=== PATIENT | female | born 1985 | race Caucasian/White ===

== ENCOUNTER 2016-11-25 18:20 | Emergency (ER) | payer SELFPAY ==
--- NOTE | 2016-11-25 19:08 | EDPHY ---
H & P Time Seen by Provider: 11/25/16 19:06 HPI/ROS: CHIEF COMPLAINT: Fever, myalgias, left breast pain, back pain HISTORY OF PRESENT ILLNESS: The patient presents to the ED after she has developed fever, myalgias, left breast pain and back pain over the past several days. Patient is currently breast-feeding. She has a remote history of pyelonephritis treated approximately 3 weeks ago by her report. She denies recent antibiotic use. In the ED she complains of subjective fever, myalgias, left breast pain and pain in her back. She denies dysuria. She has generalized abdominal pain. She also reports a chronic cough. REVIEW OF SYSTEMS: A comprehensive 10 point review of systems is otherwise negative aside from elements mentioned in the history of present illness. Source: Patient Exam Limitations: No limitations - Personal History Tetanus Vaccine Date: 2006 - Medical/Surgical History Hx Asthma: No Hx Chronic Respiratory Disease: No Hx Diabetes: No Hx Cardiac Disease: No Hx Renal Disease: No Hx Cirrhosis: No Hx Alcoholism: No Hx HIV/AIDS: No Hx Splenectomy or Spleen Trauma: No Other PMH: wisdom teeth removal - Social History Smoking Status: Former smoker - Physical Exam Exam: General Appearance: Alert, no distress Eyes: Pupils equal and round no pallor or injection ENT, Mouth: Mucous membranes moist Respiratory: There are no retractions, lungs are clear to auscultation Cardiovascular: Regular rate and rhythm Gastrointestinal: Abdomen is soft and nontender, no masses, bowel sounds normal Neurological: A&O, normal motor function, normal sensory exam, normal cranial nerves Skin: Warm and dry, no rashes Musculoskeletal: Neck is supple nontender Extremities: symmetrical, full range of motion Constitutional: Initial Vital Signs Temperature (C) 39.3 C H 11/25/16 19:06 Heart Rate 112 H 11/25/16 19:06 Respiratory Rate 18 11/25/16 19:06 Blood Pressure 97/64 L 11/25/16 19:06 O2 Sat (%) 93 11/25/16 19:06 O2 Delivery Mode Room Air Allergies/Adverse Reactions: avocado Allergy (Verified 10/08/16 21:17) latex [Latex] Allergy (Verified 10/08/16 21:17) Hives nitrile Allergy (Intermediate, Uncoded 10/08/16 21:17) Hives NARCOTICS Allergy (Uncoded 10/08/16 21:17) Home Medications: Medication Instructions Recorded Cephalexin [Keflex] 500 mg PO Q6H #28 cap 10/08/16 Ondansetron HCl [Zofran] 4 mg PO Q4-6PRN PRN #10 tablet 10/08/16 Phenazopyridine HCl [Pyridium] 200 mg PO TID #15 tab 10/08/16 Medical Decision Making - Diagnostics Imaging: Chest x-ray AP lateral: Images reviewed by myself, changes consistent with possible bronchitis or noted, no focal pneumonia. Left breast ultrasound: Images reviewed by myself and discussed with Dr. Gonzales from Radiology. Negative for abscess. ED Course/Re-evaluation: The patient presents to the ED with fever, flu-like illness, myalgias, left breast pain and back pain. She has had a chronic cough. She was noted to be febrile upon arrival. She was hemodynamically stable. Blood cultures x2 have been obtained. The patient did go for a chest x-ray which demonstrates no evidence of an obvious pneumonia. Given her breast tenderness, and ultrasound was obtained which demonstrated no evidence of an obvious abscess. The remainder of the patient's laboratory studies are unremarkable aside from a mild leukocytosis. Urinalysis demonstrates no evidence of infection. The patient's influenza assays also negative. In the ED, the patient received Tylenol, IV fluids and Zofran. I re-evaluated the patient at 10:10 p.m.. She has now defervesced in her vital signs are stable. She reports that her myalgias and back pain have improved. At this point time the etiology of her symptoms are somewhat uncertain. It is certainly likely that she is experiencing a viral syndrome. I see no evidence of an obvious bacterial infection. I see no indication for antibiotics. The patient is comfortable being discharged home and observe her symptoms. She will return to the ED for severe pain, vomiting, recurrent high fevers or other concerns. Differential Diagnosis: Differential diagnosis considered includes asthma, bronchitis, pneumonia, breast abscess, influenza, viral syndrome, dehydration - Data Points Laboratory Results: Laboratory Results 11/25/16 19:30 11/25/16 19:30 11/25/16 11/25/16 11/25/16 20:00 19:52 19:30 WBC 13.43 H 10^3/uL (3.80-9.50) RBC 4.82 10^6/uL (4.18-5.33) Hgb 14.4 g/dL (12.6-16.3) Hct 42.5 % (38.0-47.0) MCV 88.2 fL (81.5-99.8) MCH 29.9 pg (27.9-34.1) MCHC 33.9 g/dL (32.4-36.7) RDW 12.3 % (11.5-15.2) Plt Count 242 10^3/uL (150-400) MPV 11.2 fL (8.7-11.7) Neut % (Auto) 92.1 H % (39.3-74.2) Lymph % (Auto) 5.0 L % (15.0-45.0) [place] % (Auto) 1.9 L % (4.5-13.0) Eos % (Auto) 0.4 L % (0.6-7.6) Baso % (Auto) 0.2 L % (0.3-1.7) Nucleat RBC Rel Count 0.0 % (0.0-0.2) Absolute Neuts (auto) 12.36 H 10^3/uL (1.70-6.50) Absolute Lymphs (auto) 0.67 L 10^3/uL (1.00-3.00) Absolute Monos (auto) 0.25 L 10^3/uL (0.30-0.80) Absolute Eos (auto) 0.06 10^3/uL (0.03-0.40) Absolute Basos (auto) 0.03 10^3/uL (0.02-0.10) Absolute Nucleated RBC 0.00 10^3/uL (0-0.01) Immature Gran % 0.4 % (0.0-1.1) Immature Gran # 0.06 10^3/uL (0.00-0.10) VBG Lactic Acid 2.0 mmol/L (0.7-2.1) Sodium 132 L mEq/L (134-144) Potassium 4.0 mEq/L (3.5-5.2) Chloride 98 mEq/L (97-110) Carbon Dioxide 21 L mEq/l (22-31) Anion Gap 13 mEq/L (8-16) BUN 9 mg/dL (7-23) Creatinine 0.7 mg/dL (0.6-1.0) Estimated GFR > 60 Glucose 89 mg/dL (70-100) Calcium 9.0 mg/dL (8.5-10.4) Urine Color YELLOW Urine Appearance CLEAR Urine pH 6.0 (5.0-7.5) Ur Specific [place] 1.008 (1.002-1.030) Urine Protein NEGATIVE (NEGATIVE) Urine Ketones NEGATIVE (NEGATIVE) Urine Blood NEGATIVE (NEGATIVE) Urine Nitrate NEGATIVE (NEGATIVE) Urine Bilirubin NEGATIVE (NEGATIVE) Urine Urobilinogen NEGATIVE EU (0.2-1.0) Ur Leukocyte Esterase NEGATIVE (NEGATIVE) Ur Culture Indicated? NOT INDICATED (NI) Urine Glucose NEGATIVE (NEGATIVE) Influenza A & B (PCR) NEGATIVE FOR FLU (NEGATIVE) Medications Given: Discontinued Medications Acetaminophen (Tylenol) 1,000 mg PO EDNOW ONE Stop: 11/25/16 19:44 Last Admin: 11/25/16 20:08 Dose: 1,000 mg Sodium Chloride (Ns) 1,000 mls @ 0 mls/hr IV ONCE ONE PRN Reason: Wide Open Stop: 11/25/16 19:35 Last Admin: 11/25/16 20:19 Dose: 1,000 mls Sodium Chloride (Ns) 1,000 mls @ 0 mls/hr IV ONCE ONE PRN Reason: Wide Open Stop: 11/25/16 19:44 Last Admin: 11/25/16 20:19 Dose: 1,000 mls Departure - Departure Disposition: Home, Routine, Self-Care Clinical Impression: Viral infection Condition: Good Instructions: Viral Syndrome (ED) Additional Instructions: 1. Tylenol and ibuprofen as needed for fever and mild pain 2. Please return to the ED for severe pain, vomiting or other concerns. 3. Please follow up with your primary care provider as scheduled.
[2016-11-25] MEDS ORDERED: ONDANSETRON 4 MG/2 ML VIAL ONE (19:15)
[2016-11-25] MEDS ORDERED: NS 1,000 ML IV ONE ×2 (19:34→19:43)
[2016-11-25] MEDS ORDERED: ACETAMINOPHEN 500 MG TAB PO ONE (19:43)
[2016-11-25 19:44] LABS: % IMMATURE GRANULYOCYTES 0.4 % (0.0-1.1); ABSOLUTE IMMATURE GRANULOCYTES 0.06 10^3/uL (0.00-0.10); ADD DIFF? NO; ADD MORPH? NO; ADD SCAN? NO; ATYPICAL LYMPHOCYTE FLAG 0 (0-99); FRAGMENT RBC FLAG 0 (0-99); HEMATOCRIT 42.5 % (38.0-47.0); HEMOGLOBIN 14.4 g/dL (12.6-16.3); LEFT SHIFT FLG 70 (0-99); LIPEMIA HEMOLYSIS FLAG 90 (0-99); MEAN CELL HEMOGLOBIN 29.9 pg (27.9-34.1); MEAN CELL HEMOGLOBIN CONCENTR. 33.9 g/dL (32.4-36.7); MEAN CELL VOLUME 88.2 fL (81.5-99.8); MEAN PLATELET VOLUME 11.2 fL (8.7-11.7); PLATELET CLUMPS FLAG 10 (0-99); PLATELET COUNT 242 10^3/uL (150-400); RED BLOOD CELL COUNT 4.82 10^6/uL (4.18-5.33); RED CELL DISTRIBUTION WIDTH 12.3 % (11.5-15.2)
[2016-11-25 19:47] LABS: ANION GAP 13 mEq/L (8-16); CARBON DIOXIDE 21 mEq/l (22-31); CHLORIDE 98 mEq/L (97-110); CREATININE 0.7 mg/dL (0.6-1.0); GLOMERULAR FILTRATION RATE > 60; GLUCOSE 89 mg/dL (70-100); SODIUM 132 mEq/L (134-144)
--- NOTE | 2016-11-25 20:28 | DX ---
Chest, Two Views 1948 hours History: Cough, fever. Comparison: June 2009 Findings: Cardiac silhouette is within normal range. No pneumonia, congestive heart failure, pleura l effusion, or pneumothorax. Mild bilateral peribronchial thickening. Impression: 1. Bronchitis. 2. No definite pneumonia.
[2016-11-25 20:30] LABS: COLOR YELLOW; LEUKOCYTE ESTERASE,URINE NEGATIVE (NEGATIVE); NITRITE,URINE NEGATIVE (NEGATIVE)
[2016-11-25 21:02] VITALS: RESP 14
[2016-11-25 22:39] VITALS: BP 98/60; PULSE 68; TEMP 98.4; O2SAT 94
--- NOTE | 2016-11-26 08:31 | US ---
Ultrasound Left Breast History: Swelling and pain in the left breast outer aspect. Suspect infection. Technique: Ultrasound imaging of the left breast from the 2 to 4 o'clock position and periareolar reg ion. Findings: No ultrasound evidence of focal fluid collection or abscess in the left breast outer quadra nt or retroareolar region. No suspicious mass. No abscess noted. Impression: 1. BI-RADS 1: Negative ultrasound of the left breast. 2. No ultrasound evidence of dominant solid or cystic lesion or abscess in the left breast outer aspe ct. 3. Recommend continued clinical monitoring and treatment based on clinical suspicion. 4. Recommend annual mammograms beginning at age 40. Findings and recommendations discussed with Dr. Gamaliel Polanco.
== END 2016-11-25 22:38 | disposition home or self-care (01) ==
DX: B34.9 Viral infection, unspecified (principal); Z87.891 Personal history of nicotine dependence; Z91.040 Latex allergy status
CPT/HCPCS: J2405

== ENCOUNTER 2017-10-10 17:49 | Observation (INO) | payer OTHER | END 2017-10-10 22:15 | disposition home or self-care (01) | LOC: FLD 17:49 | PROVIDERS: ADMIT Advanced Practice Midwife; ATTEND Advanced Practice Midwife | DX: O36.8130 Decreased fetal movements, third trimester, not applicable or unspecified (principal); Z3A.38 38 weeks gestation of pregnancy | CPT/HCPCS: G0378 ==

== ENCOUNTER 2017-10-11 21:40 | Inpatient (IN) | payer OTHER ==
[2017-10-11] MEDS ORDERED: AMPICILLIN SODIUM 2 GM in NS 100 ML IV ONE ×2 (23:30→23:44)
[2017-10-11] MEDS ORDERED: OXYTOCIN 20 UNIT in LR 1,000 ML IV PRN (23:40)
[2017-10-11] MEDS ORDERED: OLIVE OIL 118 ML BTL MISC PRN (23:40)
[2017-10-11] MEDS ORDERED: LR 1,000 ML IV PRN (23:40)
[2017-10-11] MEDS ORDERED: TERBUTALINE SULFATE 1 MG/ML VIAL IV PRN (23:40)
[2017-10-11] MEDS ORDERED: EPSOM SALT 454 GM TP PRN (23:40)
[2017-10-12 00:08] LABS: % IMMATURE GRANULYOCYTES 1.4 % (0.0-1.1); ABSOLUTE IMMATURE GRANULOCYTES 0.21 10^3/uL (0.00-0.10); ADD DIFF? NO; ADD MORPH? NO; ADD SCAN? NO; ATYPICAL LYMPHOCYTE FLAG 10 (0-99); FRAGMENT RBC FLAG 0 (0-99); HEMOGLOBIN 12.5 g/dL (12.6-16.3); LEFT SHIFT FLG 20 (0-99); LIPEMIA HEMOLYSIS FLAG 90 (0-99); MEAN CELL HEMOGLOBIN 30.1 pg (27.9-34.1); MEAN CELL HEMOGLOBIN CONCENTR. 33.8 g/dL (32.4-36.7); MEAN CELL VOLUME 89.2 fL (81.5-99.8); PLATELET CLUMPS FLAG 0 (0-99); PLATELET COUNT 276 10^3/uL (150-400); RED BLOOD CELL COUNT 4.15 10^6/uL (4.18-5.33); RED CELL DISTRIBUTION WIDTH 12.4 % (11.5-15.2)
--- NOTE | 2017-10-12 02:05 | GHP ---
[f rep st] PREOP HISTORY AND PHYSICAL DATE OF ADMISSION: 10/11/2017 HISTORY OF PRESENT ILLNESS: The patient is a 31-year-old, G8, P2, A5, at 36 weeks and 2 days, with an estimated due date of 11/06/2017, that was established by a 10 week 6-day ultrasound. The patient had an unknown last menstrual period. The patient presents this evening after spontaneous leakage of fluid approximately 8 p.m. The patient felt clear fluid at the home, which had a slightly darker appearance upon admission to the hospital, but generally remains clear. The patient has been having good movements. She has not felt any contractions at this point. Due to being 36 weeks, as well as a history of a 2 vessel cord and retained placenta after her last delivery, the patient was advised to have a hospital . The patient presents for these reasons. CARE: The patient has been with [facility] since 14 weeks gestation. The patient had an ultrasound at 10 weeks and 6 days by a maternal specialist, Dr. Yang, establishing her due date of 11/06. The patient then presented to us at 14 weeks initiating care. The patient desires a natural approach with labor management as she had her first 2 deliveries at home. The patient is wanting to be safe and is fine with being here in the hospital. The patient had an initial quad screen that was positive for increased Down syndrome risk. She proceeded with in harrison testing and this was negative. At the 20 week ultrasound, the patient was found to have a 2 vessel cord. The placenta was posterior with normal fluids. The patient had some pain on the left side of her belly at approximately 28 weeks, but these subsided. LABS: Include maternal blood type A negative with negative antibody screen. The patient received RhoGAM at 28 weeks. RPR nonreactive. Rubella non immune. Hepatitis B surface antigen negative. HIV negative. Urinalysis and culture were negative. Pap smear negative. Verified testing was negative. 1-hour Glucola was normal. GBS culture was performed on 10/10 in the office but is currently pending. PAST MEDICAL HISTORY: History of moderate dysplasia requiring a LEEP procedure in 1998. PAST SURGICAL HISTORY: D and Cs in the past. PAST HISTORY: In 1997 an SAB, 1998 another SAB with a D and C, in 2000 elective termination of a , in 2002 a viable male at 6 pounds 5 ounces, delivered at 38 weeks after 3 hours and 40 minutes of labor with an uncomplicated vaginal delivery. In 2003, an elective terminated . In 2009 another elective terminated . In April 2015, a viable female at 7 pounds, delivered at 37+ weeks gestation as a home . The delivery was uncomplicated, but then the placenta was retained and required manual extraction and the patient had endometritis. ALLERGIES: The patient has an allergy to latex and Nitrile gloves. MEDICATIONS: Current medications only vitamins, fish oil, calcium, magnesium. SOCIAL HISTORY: The patient is , lives with her and their combined family of 3 children. The patient smoked tobacco up to the . The patient used marijuana in the past as well as moderate alcohol. The patient denies use during the . PHYSICAL EXAM: GENERAL: Upon admission, the patient is a well-developed, well- nourished white female in no physical distress. VITAL SIGNS: Stable and the patient is afebrile. See nursing documentation for full details. heart tones reveal category 1 tracing with a baseline in the 120s to 130s with good variability and accelerations. No decelerations noted. No contractions noted. Pelvic exam is deferred, but an AmniSure was performed, which confirmed rupture of membranes. EXTREMITIES: Revealed nontender and no edema. IMAGING: Abdominal ultrasound was performed and the baby was confirmed in a vertex presentation. ASSESSMENT: Intrauterine at 36 weeks and 2 days with spontaneous rupture of membranes. Unknown status of GBS and the patient agrees to antibiotics at this time. The patient does not feel compelled to do more than 2 doses of antibiotics, but hopefully she will be delivered by that time. History of retained placenta and endometritis after manual extraction. History of a loop electrosurgical excision procedure (LEEP) in 1998. Rubella nonimmune. PLAN: Will let labor proceed naturally. The patient has a desire for natural course and does not want any intervention at this time. She does agree to antibiotics at this time. The patient requested delayed cord clamping after delivery. /[id number]/MODL MTDD
[2017-10-12] MEDS ORDERED: AMPICILLIN SODIUM 1 GM in NS 100 ML IV SCH (04:00)
[2017-10-12] MEDS: AMPICILLIN SODIUM 1 GM in NS 100 ML IV SCH ×4 (04:48→18:25)
[2017-10-12] MEDS ORDERED: BETAMETHASONE IM SYRINGE IM ONE (10:20)
[2017-10-12] MEDS ORDERED: LR 500 ML IV PRN (10:20)
--- NOTE | 2017-10-12 10:25 | OBPROG ---
Labor Progress Note Assessment/Plan: Assessment: 31 y/o @ 36 2/7 wks with PPROM - prolonged rupture Plan: Discussed with pt and she wants as little intervention as possible at this time On exam, pt is 1-2/50/-2; cephalic Ruptured 14 hours now, pt is afebrile Pt wants to try acupuncture first and if no signs of labor she agrees to Pitocin Continuous monitoring once Pitocin is started Cont Amp for GBS prophylaxis, GBS unknown-results pending - s/p 2 doses Discussed steroids - BTMZ for lung maturity; pt agrees FHTs - Cat I tracing 10/12/17 10:39 Subjective/Intrapartum Course: 10/12/17 10:25 Pt wants as little intervention as possible. No ctx's at this time. Good FM noted. Clear fluid noted. Objective: 10/11/17 23:55 Patient ABO/Rh A NEGATIVE 10/11/17 23:55 - SVE Dilation (cm): 2 Effacement (%): 50 Station: -2 Membranes: SROM Amniotic Fluid Color: Clear - Contraction Pattern Assessment Current Contraction Pattern: Other (Specify) (none) - FHR Assessment Knight FHR (bpm): 140 FHR Pattern Variability: Moderate FHR Category: 1 Oxytocin Orders Assessment - Pre-Induction/Augmentation Assessment Indication: PPROM Presentation: Vertex Gestational Age: 36 week(s) and 2 day(s) Gestational Age Determined By: Last Menstral Period (c/w u/s) Estimated Weight: 2501-3400g Membrane Status: Ruptured Current Sterile Vaginal Exam (SVE): dpt declines Current Contraction Pattern: Other (Specify) (none) - Heart Rate Pattern [place] FHR Baseline (bpm): 140 FHR Category: 1 FHR Pattern Variability: Moderate - Velez's Score Dilation: 1-2cm Effacement: 40-50 Station: -2 Cervix: Soft Cervix Position: Mid Velez Score Total: 6 - Induction/Augmentation Consent Risks/Benefits of Procedure Reviewed/Pt Agrees to Proceed: Yes ICD10 Worksheet Patient Problems: Problems Problem Status Onset premature rupture of membranes (PPROM) with onset of labor within 24 hours of rupture in third trimester, antepartum Acute
[2017-10-12] MEDS ORDERED: OXYTOCIN 30 UNIT in NS 500 ML IV SCH (10:30)
--- NOTE | 2017-10-12 14:21 | SOAPPROG ---
SOAP Progress Note Assessment/Plan: Assessment: Called in by nurse Bhavani Ball to do acupuncture for labor encouragement. Patient is 36 weeks and water broke. Patient has known allergy to latex and silicon, sensitive to nickel. One month ago patient had severe respiratory infection and cough. Plan: Acupuncture performed: R auricular: nicole helga, point zero, endocrine, inflammation, thalamus. Bilateral: BL 23- 32 - with e-stim increase blood flow to the uterus. BL 13 - Reduce cough. R LI 4 - L SP 6 with e-stim - move the qi and support the uterus. ST 36 - GB 34 with e-stim - increase energy and open the cervix. BL 67 - encourage labor. KI 3 - relax the lower back. LR 4 - encourage circulation and blood flow. SP 4 - Master point of the uterus, encourage movement and blood flow. GB 40 - open the hips, relax the pelvis. This treatment is to encourage dilation of the cervix and contraction of the uterus. If patient would like follow-up treatments post- for milk production and/ or post- pain, she is welcome to call our office. 10/12/17 14:12 Objective: Laboratory Results 10/11/17 23:55 ICD10 Worksheet Patient Problems: Problems Problem Status Onset premature rupture of membranes (PPROM) with onset of labor within 24 hours of rupture in third trimester, antepartum Acute
--- NOTE | 2017-10-12 14:58 | OBPROG ---
Labor Progress Note Assessment/Plan: Assessment: 31 y/o @ 36 2/7 wks with PPROM - prolonged rupture Plan: Pt had acupuncture around 1400 and wants to hold off on Pitocin for now and see what her body does Cont Amp for GBS prophylaxis - s/p 4 doses s/p BTMZ x 1 FHTs - Cat I tracing Pt is afebrile 10/12/17 14:55 Subjective/Intrapartum Course: 10/12/17 10:25 Pt wants as little intervention as possible. No ctx's at this time. Good FM noted. Clear fluid noted. 10/12/17 14:57 Pt just finished with acupuncture. Denies any cramping. Continues to leak clear fluid. Good FM noted. Objective: 10/11/17 23:55 Patient ABO/Rh A NEGATIVE 10/11/17 23:55 - SVE Membranes: SROM Amniotic Fluid Color: Clear - Contraction Pattern Assessment Current Contraction Pattern: Other (Specify) (none) - FHR Assessment [place] FHR (bpm): 130 FHR Pattern Variability: Moderate FHR Category: 1 - Physical Exam Estimated Weight: 2501-3400g Oxytocin Orders Assessment - Pre-Induction/Augmentation Assessment Presentation: Vertex Gestational Age: 36 week(s) and 2 day(s) Estimated Weight: 2501-3400g ICD10 Worksheet Patient Problems: Problems Problem Status Onset premature rupture of membranes (PPROM) with onset of labor within 24 hours of rupture in third trimester, antepartum Acute
--- NOTE | 2017-10-12 21:51 | OBDEL ---
Info Type: Vaginal Presentation at Delivery: Vertex L&D Analgesia/Anesthesia Type: None GBS+: Yes Antibiotic Used for + GBS: Ampicillin Intrapartum Medications: Generic Name Dose Route Start Last Admin Trade Name Freq PRN Reason Stop Dose Admin Lactated Ringer's 1,000 mls @ 0 mls/hr 10/11/17 23:40 10/12/17 00:27 Lr IV 04/09/18 23:39 1,000 mls PRN PRN Administration SEE PROTOCOL CONDITIONS Protocol Per Protocol Ampicillin Sodium 1 gm/ Sodium 100 mls @ 200 mls/hr 10/12/17 04:45 10/12/17 18:25 Chloride IV 11/11/17 04:44 100 mls Q4H MONISHA Administration Protocol Oxytocin 30 unit/ Sodium 503 mls @ 0 mls/hr 10/12/17 10:30 10/12/17 16:45 Chloride IV 04/10/18 10:29 503 mls CONT MONISHA Administration Protocol Per Protocol Discontinued Medications Generic Name Dose Route Start Last Admin Trade Name Freq PRN Reason Stop Dose Admin Betamethasone Acet/Betameth SodPhos 12 mg 10/12/17 10:20 10/12/17 11:15 Celestone Im Syringe IM 10/12/17 10:21 12 mg ONCE ONE Administration Ampicillin Sodium 2 gm/ Sodium 110 mls @ 220 mls/hr 10/11/17 23:30 10/12/17 00:28 Chloride IV 10/11/17 23:59 110 mls ONCE ONE Administration - Hospital Course Intrapartum: 10/12/17 10:25 Pt wants as little intervention as possible. No ctx's at this time. Good FM noted. Clear fluid noted. 10/12/17 14:57 Pt just finished with acupuncture. Denies any cramping. Continues to leak clear fluid. Good FM noted. Indications for Delivery: PPROM (prolonged rupture) Vaginal Delivery - Delivery Provider Delivery Physician/CNM: Winsome Figueroa - Labor and Delivery Onset of Contractions Date: 10/12/17 Onset of Contractions Time: 19:00 Onset of Contractions Type: Induced Rupture of Membranes Date: 10/11/17 Rupture of Membranes Time: 20:00 Rupture of Membranes Type: Spontaneous Amniotic Fluid Color: Clear Dilation Complete Date: 10/12/17 Dilation Complete Time: 21:25 Placenta Delivery Date: 11/18/17 Placenta Delivery Time: 21:39 Total Hours of Labor: 2 Laceration: Other (Specify) (perineum intact) Vaginal Sponge Count Correct: Yes Vaginal Needle Count Correct: Yes Vaginal Sweep Performed: Yes EBL: 300 Delivery Events: Nuchal Cord (x1 - loose and slipped) Delivery Comment: No complications - Medications Labor Augmentation/Induction Methods Used: Pitocin (Prolonged rupture) Data [place] Delivery Date: 10/12/17 Delivery Time: 21:29 CHA: 11/06/17 Gestational Age: 36 week(s) and 3 day(s) Sex of Infant: Male Score (1 Min): 7 Score (5 Min): 9 ICD10 Worksheet Patient Problems: Problems Problem Status Onset premature rupture of membranes (PPROM) with onset of labor within 24 hours of rupture in third trimester, antepartum Acute (spontaneous vaginal delivery) Acute - ICD10 Problem Qualifiers (1) (spontaneous vaginal delivery)
[2017-10-12] MEDS ORDERED: SIMETHICONE 80 MG TAB CHEW PO PRN (21:57)
[2017-10-12] MEDS ORDERED: DOCUSATE SODIUM 100 MG CAP PO PRN (21:57)
[2017-10-12] MEDS ORDERED: HYDROCODONE/APAP 5/325 TAB PO PRN (21:57)
[2017-10-12] MEDS ORDERED: HYDROCORTISONE 0.5% CREAM TP PRN (21:57)
[2017-10-12 22:14] LABS: BASE EXCESS CORD -8.7 mEq/L (-13.6--3.2); CORD BLOOD PCO2 62.2 mmHg (37-60); PH ARTERIAL CORD BLOOD 7.17 (7.10-7.37)
[2017-10-12 22:16] LABS: PH VENOUS CORD BLOOD 7.29 (7.20-7.42)
[2017-10-12] MEDS: IBUPROFEN 600 MG TAB PO PRN (22:47)
[2017-10-13] MEDS: IBUPROFEN 600 MG TAB PO PRN ×4 (05:58→23:02)
[2017-10-13] MEDS: AMPICILLIN SODIUM 1 GM in NS 100 ML IV SCH ×2 (09:16→09:17)
--- NOTE | 2017-10-13 11:57 | OBPP ---
Progress Note Assessment/Plan: Assessment: PPD 1 s/p after prolonged ROM, had abx for unknown GBS, now result shows -GBS Plan: routine care 10/13/17 11:54 Subjective/ Course: 10/13/17 11:55 Pt doing well. Working on BF and pumping. mild cramps controlled with ibuprofen. bld lessening. urinating fine. Objective: 10/11/17 23:55 Patient ABO/Rh A NEGATIVE 10/13/17 00:01 Temp Pulse Resp BP Pulse Ox 36.0 C 88 16 104/60 10/13/17 09:45 10/13/17 09:45 10/13/17 09:45 10/13/17 09:45 Uterine Position/Fundal Height: Umbilicus -2 Uterine Tone: Firm Physical Exam - Physical Exam Abdomen: non-tender, soft Extremities: non-tender, pedal edema (minimal) Skin: normal color, warm/dry Neuro/Psych: alert, normal mood/affect
[2017-10-13] MEDS ORDERED: MEASLES,MUMPS&RUBELLA VACC/PF 0.5 ML VIAL SC ONE (13:34)
[2017-10-13 23:17] VITALS: TEMP 97.8; O2SAT 96
[2017-10-14] MEDS: IBUPROFEN 600 MG TAB PO PRN (06:10)
[2017-10-14 08:20] VITALS: BP 95/55; PULSE 71; RESP 12
--- NOTE | 2017-10-14 09:53 | OBPP ---
Progress Note Assessment/Plan: Assessment:nipples intact pain well managed voiding without difficulty ff@u scant rubra lochia desires to be discharged Plan:discharged to home with instructions fu 4 weeks and 6 weeks. 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 Discussed bleeding patterns, depression, ss infection, , pelvic rest, contraception, pericare, rest, , verbalized understanding of all of the above 10/14/17 09:50 Subjective/ Course: 10/13/17 11:55 Pt doing well. Working on BF and pumping. mild cramps controlled with ibuprofen. bld lessening. urinating fine. 10/14/17 09:47 Doing well. Denies pain. going better. Would like to be discharged if able Objective: 10/11/17 23:55 Patient ABO/Rh A NEGATIVE 10/13/17 00:01 Temp Pulse Resp BP Pulse Ox 36.6 C 71 12 95/55 L 96 10/13/17 23:16 10/14/17 08:00 10/14/17 08:00 10/14/17 08:00 10/14/17 08:00 Uterine Position/Fundal Height: At Umbilicus Uterine Tone: Firm Physical Exam - Physical Exam General Appearance: WD/WN, alert, no apparent distress Respiratory: chest non-tender, lungs clear, normal breath sounds Cardiac/Chest: regular rate, rhythm Abdomen: normal bowel sounds Extremities: normal range of motion, Mónica's sign (negative bilaterally) DTR- Lower Extremities: Knee (R): 1+, Knee (L): 1+ (no clonus) Skin: normal color, warm/dry Neuro/Psych: no motor/sensory deficits, alert, normal mood/affect, oriented x 3
--- NOTE | 2017-10-14 09:57 | OBGCSDC ---
General Delivery Information - General Info : 8 Para: 3 Abortions: 5 Type: Vaginal L&D Analgesia/Anesthesia Type: None Admission Date: 10/12/17 Labs: Patient ABO/Rh A NEGATIVE 10/13/17 00:01 Hct 37.0 % (38.0-47.0) L 10/11/17 23:55 - Hospital Course Intrapartum: 10/12/17 10:25 Pt wants as little intervention as possible. No ctx's at this time. Good FM noted. Clear fluid noted. 10/12/17 14:57 Pt just finished with acupuncture. Denies any cramping. Continues to leak clear fluid. Good FM noted. : 10/13/17 11:55 Pt doing well. Working on BF and pumping. mild cramps controlled with ibuprofen. bld lessening. urinating fine. 10/14/17 09:47 Doing well. Denies pain. going better. Would like to be discharged if able Vaginal - Delivery Provider Delivery Physician/CNM: Winsome Figueroa - Diagnosis Labor: Induced Rupture of Membranes Type: Spontaneous Amniotic Fluid Color: Clear Laceration: Other (Specify) (perineum intact) Delivery Events: Nuchal Cord (x1 - loose and slipped) - Delivery EBL: 300 [place] Data Knight Delivery Date: 10/12/17 Delivery Time: 21:29 CHA: 11/06/17 Gestational Age: 36 week(s) and 5 day(s) Sex of Infant: Male [place] Weight (gm): 2328 g Score (1 Min): 7 Score (5 Min): 9 Discharge Information - Discharge Information Prescriptions: Ibuprofen [Motrin (*)] 600 mg PO Q6HRS PRN #30 tab PRN Reason: Pain, Inflammatory Condition: Good
== END 2017-10-14 13:15 | disposition home or self-care (01) | DRG 775 ==
LOC: FLD 21:40 → OBSVTOIN 10-12 01:25 → FOB 10-12 23:30
PROVIDERS: ADMIT Obstetrics & Gynecology; ATTEND Obstetrics & Gynecology
PROC: 10E0XZZ Delivery of Products of Conception, External Approach (ICD-10-PCS; principal; 2017-10-12)
PROC: 3E033VJ Introduction of Other Hormone into Peripheral Vein, Percutaneous Approach (ICD-10-PCS; principal; 2017-10-12)
PROC: 3E0234Z Introduction of Serum, Toxoid and Vaccine into Muscle, Percutaneous Approach (ICD-10-PCS; principal; 2017-10-12)
DX: O42.013 Preterm premature rupture of membranes, onset of labor within 24 hours of rupture, third trimester (principal); O69.81X0 Labor and delivery complicated by cord around neck, without compression, not applicable or unspecified; O99.820 Streptococcus B carrier state complicating pregnancy; O60.14X0 Preterm labor third trimester with preterm delivery third trimester, not applicable or unspecified; O26.893 Other specified pregnancy related conditions, third trimester; Z67.91 Unspecified blood type, Rh negative; Z3A.36 36 weeks gestation of pregnancy; Z37.0 Single live birth
CPT/HCPCS: G0378; J0290; J0702

== ENCOUNTER 2017-11-02 04:14 | Emergency (ER) | payer OTHER ==
[2017-11-02 04:20] VITALS: RESP 16; TEMP 98.1
[2017-11-02] MEDS ORDERED: NS 1,000 ML IV ONE (04:31)
--- NOTE | 2017-11-02 04:33 | EDPHY ---
H & P Stated Complaint: ?UTI HPI/ROS: HPI CHIEF COMPLAINT: Left-sided flank pain, dysuria, recent UTI. HISTORY OF PRESENT ILLNESS: Patient is a very pleasant 31-year-old female she is otherwise healthy with no significant medical history she just had a vaginal delivery 3 weeks ago. She presents emergency room with left flank pain and dysuria. She states she was recently treated by her primary care doctor for urinary tract infection with Keflex. She states that she did not have a urinalysis sent. This was over the phone and called in prescription. She completed 5 days of Keflex. She has not had a fever. She has not any vomiting. She does report nausea and some mild 3/10 left flank pain. She decided come the emergency room as she thinks she may have an ongoing urinary tract infection and may be possibly in her kidney. She denies chills, denies rigors. Denies fever. Denies vomiting. Reports to me that her delivery was uncomplicated. Her son was born 4 weeks premature. Past Medical History: No significant medical history Past Surgical History: No significant surgical history Social History: Denies daily use of drugs alcohol tobacco products. Lives in the [facility] Family History: Noncontributory ROS REVIEW OF SYSTEMS: A comprehensive 10 point review of systems is otherwise negative aside from elements mentioned in the history of present illness. Exam Constitutional appears nontoxic, triage nursing summary reviewed, vital signs reviewed, awake/alert. Vital signs noted at triage. Afebrile. Eyes normal conjunctivae and sclera, EOMI, PERRLA. HENT normal inspection, atraumatic, moist mucus membranes, no epistaxis, neck supple/ no meningismus, no raccoon eyes. Respiratory clear to auscultation bilaterally, normal breath sounds, no respiratory distress, no wheezing. Cardiovascular rate normal, regular rhythm, no murmur, no edema, distal pulses normal. Gastrointestinal soft, non-tender, no rebound, no guarding, normal bowel sounds, no distension, no pulsatile mass. Genitourinary no significant tenderness on CVA exam. Musculoskeletal no midline vertebral tenderness, full range of motion, no calf swelling, no tenderness of extremities, no meningismus, good pulses, neurovascularly intact. Skin pink, warm, & dry, no rash, skin atraumatic. Neurologic awake, alert and oriented x 3, AAOx3, moves all 4 extremities equally, motor intact, sensory intact, CN II-XII intact, normal cerebellar, normal vision, normal speech. Psychiatric normal mood/affect. Heme/Lymph/Immune no lymphadenopathy. Differential Diagnosis: Includes but is not limited to in a particular order, UTI, pyelonephritis, cystitis, sepsis. Medical Decision Making: Plan for this patient IV establishment with basic blood work, check CBC with white count, check urinalysis, send urine culture. Evaluate for UTI versus pyelonephritis. Re-evaluation: 0510: Urinalysis reviewed. This shows UTI. Urine cultures been sent. 1 g Rocephin has been ordered. Will additionally place back on Keflex for week. She does appear well nontoxic here. Afebrile. She is not vomiting. She has no fever. I do feel that she can go home. However return precautions given. She understands return emergency room she develops worsening abdominal pain fever flank pain or vomiting. Close follow-up with primary care doctor. Keflex as prescribed. Source: Patient - Personal History LMP (Females 10-55): 22-28 Days Ago Current Tetanus/Diphtheria Vaccine: Unsure Current Tetanus Diphtheria and Acellular Pertussis (TDAP): Unsure Tetanus Vaccine Date: 2006 - Medical/Surgical History Hx Asthma: No Hx Chronic Respiratory Disease: No Hx Diabetes: No Hx Cardiac Disease: No Hx Renal Disease: No Hx Cirrhosis: No Hx Alcoholism: No Hx HIV/AIDS: No Hx Splenectomy or Spleen Trauma: No Other PMH: pp endometritis after home , wisdom teeth removal - Social History Smoking Status: Former smoker Constitutional: Initial Vital Signs Temperature (C) 36.7 C 11/02/17 04:18 Heart Rate 75 11/02/17 04:18 Respiratory Rate 16 11/02/17 04:18 Blood Pressure 101/59 L 11/02/17 04:18 O2 Sat (%) 95 11/02/17 04:18 O2 Delivery Mode Room Air Allergies/Adverse Reactions: acetaminophen [From Vicodin] Allergy (Verified 10/12/17 19:32) avocado Allergy (Verified 10/08/16 21:17) hydrocodone [From Vicodin] Allergy (Verified 10/12/17 19:32) latex [Latex] Allergy (Verified 10/08/16 21:17) Hives oxycodone [From OxyContin] Allergy (Verified 10/12/17 19:32) nitrile Allergy (Intermediate, Uncoded 10/08/16 21:17) Hives Home Medications: Medication Instructions Recorded Docusate Sodium [Colace 100 MG (*)] 100 mg PO BID PRN cap 10/14/17 Ibuprofen [Motrin (*)] 600 mg PO Q6HRS PRN #30 tab 10/14/17 Cephalexin [Keflex] 500 mg PO Q6H #28 cap 11/02/17 Medical Decision Making - Data Points Laboratory Results: Laboratory Results 11/02/17 04:48 11/02/17 11/02/17 11/02/17 04:48 04:48 03:20 WBC 15.13 10^3/uL H 10^3/uL (3.80-9.50) RBC 4.94 10^6/uL 10^6/uL (4.18-5.33) Hgb 14.4 g/dL g/dL (12.6-16.3) Hct 44.0 % % (38.0-47.0) MCV 89.1 fL fL (81.5-99.8) MCH 29.1 pg pg (27.9-34.1) MCHC 32.7 g/dL g/dL (32.4-36.7) RDW 11.9 % % (11.5-15.2) Plt Count 340 10^3/uL 10^3/uL (150-400) MPV 9.8 fL fL (8.7-11.7) Neut % (Auto) 75.9 % H % (39.3-74.2) Lymph % (Auto) 16.0 % % (15.0-45.0) Rhea % (Auto) 4.8 % % (4.5-13.0) Eos % (Auto) 2.4 % % (0.6-7.6) Baso % (Auto) 0.6 % % (0.3-1.7) Nucleat RBC Rel Count 0.0 % % (0.0-0.2) Absolute Neuts (auto) 11.49 10^3/uL H 10^3/uL (1.70-6.50) Absolute Lymphs (auto) 2.42 10^3/uL 10^3/uL (1.00-3.00) Absolute Monos (auto) 0.72 10^3/uL 10^3/uL (0.30-0.80) Absolute Eos (auto) 0.36 10^3/uL 10^3/uL (0.03-0.40) Absolute Basos (auto) 0.09 10^3/uL 10^3/uL (0.02-0.10) Absolute Nucleated RBC 0.00 10^3/uL 10^3/uL (0-0.01) Immature Gran % 0.3 % % (0.0-1.1) Immature Gran # 0.05 10^3/uL 10^3/uL (0.00-0.10) Sodium Pending Potassium Pending Chloride Pending Carbon Dioxide Pending Anion Gap Pending BUN Pending Creatinine Pending Estimated GFR Pending Glucose Pending Calcium Pending Urine Color PALE YELLOW Urine Appearance HAZY Urine pH 5.0 (5.0-7.5) Ur Specific [place] 1.002 (1.002-1.030) Urine Protein NEGATIVE (NEGATIVE) Urine Ketones NEGATIVE (NEGATIVE) Urine Blood 2+ H (NEGATIVE) Urine Nitrate NEGATIVE (NEGATIVE) Urine Bilirubin NEGATIVE (NEGATIVE) Urine Urobilinogen NEGATIVE EU EU (0.2-1.0) Ur Leukocyte Esterase 3+ H (NEGATIVE) Urine RBC 5-10 /hpf H /hpf (0-3) Urine WBC 50-182 /hpf H /hpf (0-3) Ur Epithelial Cells TRACE /lpf /lpf (NONE-1+) Urine Bacteria 1+ /hpf H /hpf (NONE SEEN) Urine Glucose NEGATIVE (NEGATIVE) Medications Given: Discontinued Medications Sodium Chloride (Ns) 1,000 mls @ 0 mls/hr IV EDNOW ONE; Wide Open PRN Reason: Protocol Stop: 11/02/17 04:32 Last Admin: 11/02/17 04:46 Dose: 1,000 mls Departure - Departure Disposition: Home, Routine, Self-Care Clinical Impression: Urinary tract infection Condition: Good Instructions: Urinary Tract Infection in Women (ED) Additional Instructions: 1. Make sure to drink lots of fluids stay well-hydrated. 2. Return emergency room if develops worsening symptoms includes worsening abdominal pain, flank pain, fever, vomiting. 3. Take antibiotic as prescribed. Referrals: Peggy Thrasher MD [Primary Care Provider] - As per Instructions Prescriptions: Cephalexin [Keflex] 500 mg PO Q6H #28 cap
[2017-11-02 04:38] LABS: COLOR PALE YELLOW; LEUKOCYTE ESTERASE,URINE 3+ (NEGATIVE); NITRITE,URINE NEGATIVE (NEGATIVE)
[2017-11-02 04:46] LABS: BACTERIA 1+ /hpf (NONE SEEN); WBC,URINE 50-182 /hpf (0-3)
[2017-11-02 04:56] LABS: % IMMATURE GRANULYOCYTES 0.3 % (0.0-1.1); ABSOLUTE IMMATURE GRANULOCYTES 0.05 10^3/uL (0.00-0.10); ADD DIFF? NO; ADD MORPH? NO; ADD SCAN? NO; ATYPICAL LYMPHOCYTE FLAG 10 (0-99); FRAGMENT RBC FLAG 0 (0-99); HEMOGLOBIN 14.4 g/dL (12.6-16.3); LEFT SHIFT FLG 10 (0-99); LIPEMIA HEMOLYSIS FLAG 80 (0-99); MEAN CELL HEMOGLOBIN 29.1 pg (27.9-34.1); MEAN CELL HEMOGLOBIN CONCENTR. 32.7 g/dL (32.4-36.7); MEAN CELL VOLUME 89.1 fL (81.5-99.8); MEAN PLATELET VOLUME 9.8 fL (8.7-11.7); PLATELET CLUMPS FLAG 10 (0-99); PLATELET COUNT 340 10^3/uL (150-400); RED BLOOD CELL COUNT 4.94 10^6/uL (4.18-5.33); RED CELL DISTRIBUTION WIDTH 11.9 % (11.5-15.2)
[2017-11-02 05:15] LABS: ANION GAP 16 mEq/L (8-16); CALCIUM 9.6 mg/dL (8.5-10.4); CARBON DIOXIDE 21 mEq/l (22-31); CHLORIDE 107 mEq/L (97-110); CREATININE 0.9 mg/dL (0.6-1.0); GLOMERULAR FILTRATION RATE > 60; GLUCOSE 97 mg/dL (70-100); POTASSIUM 4.3 mEq/L (3.5-5.2); SODIUM 144 mEq/L (134-144)
[2017-11-02] MEDS ORDERED: ACETAMINOPHEN 500 MG TAB ONE (05:21)
[2017-11-02] MEDS ORDERED: ACETAMINOPHEN 500 MG TAB PO ONE (05:22)
[2017-11-02] MEDS ORDERED: CEPHALEXIN 500MG PREPACK#4 BTL TAKEHOME ONE (05:53)
[2017-11-02 06:03] VITALS: BP 100/67; PULSE 67; O2SAT 97
== END 2017-11-02 06:03 | disposition home or self-care (01) ==
DX: N39.0 Urinary tract infection, site not specified (principal); B96.20 Unspecified Escherichia coli [E. coli] as the cause of diseases classified elsewhere; E86.9 Volume depletion, unspecified; Z87.891 Personal history of nicotine dependence; Z91.040 Latex allergy status
CPT/HCPCS: 86735-90; 86765-90; 86787-90; 96365; J0696